=== PATIENT | male | born 1965 | race Caucasian/White ===

== ENCOUNTER 2021-02-26 00:41 | Day surgery (SDC) | payer OTHER, SELFPAY ==
[2021-02-15 13:26] VITALS: BMI 37.3
--- NOTE | 2021-02-26 08:16 | P.PNAN_ITS ---
Anes - Initial Pre Proc Eval Procedure: Operation Date: 02/26/21 10:30 Proposed Procedures p Screening Colonoscopy - Bakari Scott MD Date/Time: 02/26/21 08:16 Surgeon: Bakari Scott MD Pre Op Diagnosis: neoplasm screening Patient Data Age: 55 Gender: M Height: 1.88 m Weight: 131.81 kg Allergies Allergy/AdvReac Type Severity Reaction Status Date / Time No Known Allergies Allergy Mild Verified 02/26/21 09:45 Home Medications Medication Instructions Recorded Confirmed Type aspirin 325 mg tablet 325 mg PO DAILY 01/28/19 02/26/21 History sildenafil 100 mg tablet 100 mg PO DAILY PRN #5 tablet 06/23/20 02/26/21 Rx atorvastatin 20 mg tablet See Rx Instructions .ROUTE 11/27/20 02/26/21 Rx .COMPLEX #90 tablet Patient hx anesthesia problems: none Family hx anesthesia problems: none Results Review: All pre-operative results and documents have been reviewed as part of the pre-operative evaluation. [facility] Past Medical History Medical History (Updated 02/23/21 @ 19:09 by Zana Smith DO) DVT, lower extremity Hypertension Mixed hyperlipidemia KP (obstructive sleep apnea) Pulmonary embolism Family History Family History Father Depression Grandparent Depression Social History Social History Smoking status: Never smoker Alcohol intake: current Drinks per week: 1 Substance use: never Substance use type: does not use Living arrangements: with family Spiritual care concerns: No Anes - Eval Final PreProcedure Day of Procedure 02/26/21 08:16 Patient weight: obese Heart: regular rate and rhythm Lungs: clear to auscultation and normal air movement Airway: Mallampati scale class III Neurological: alert and oriented Last oral intake: >/= 8 hours ASA classification: III Emergent: no Anesthetic plan: proceed Anesthesia type and monitoring: general GIVS and standard monitoring Results Review: All pre-operative results and documents have been reviewed as part of the pre-operative evaluation. Informed Consent: The patient's anesthetic plan and its attendant risks and benefits were discussed with the patient/family/POA. Questions were solicited and answers provided to the satisfaction of the patient/family/POA.
[2021-02-26 09:40] VITALS: BP 147/84; PULSE 79; RESP 18; TEMP 36.9; O2SAT 96; BMI 41.1
[2021-02-26] MEDS: LACTATED RINGERS 1,000 ML 150 ML IV CONT (09:55)
--- NOTE | 2021-02-26 10:14 | PM.HPGS ---
History of Present Illness History of Present Illness Consent: Risks, benefits, and alternatives have been discussed and questions answered. Patient agrees to proceed with procedure. Chief complaint: neoplasm screening Narrative: Nael Rivera is a 55 year old male here for first screening colonoscopy Review of Systems Constitutional: Constitutional: Denies headache(s) and Denies weakness Eyes: Eyes: Denies blurry vision ENT: Reports Normal hearing present, Denies headache(s) and Denies neck pain Cardiovascular: Cardiovascular: Denies chest pain and Denies dyspnea Respiratory: Respiratory: Denies dyspnea Gastrointestinal: Gastrointestinal: Reports no additional gastrointestinal complaints Genitourinary: Genitourinary: Denies dysuria Musculoskeletal: Musculoskeletal: Denies neck pain Integumentary/Breasts: Skin/Breast: Denies dry skin Neurologic: Reports Normal hearing present, Denies headache(s) and Denies weakness Psychiatric: Psychiatric: Denies anxiety Endocrine: Endocrine: Denies change in body appearance Hematologic/Lymphatic: Hematologic/Lymphatic: Denies easy bleeding Allergic/Immunologic: Allergic/Immunologic: Denies urticaria [facility] Past Medical History Medical History (Updated 02/26/21 @ 10:14 by Bakari Scott MD) Colon cancer screening DVT, lower extremity Hypertension Mixed hyperlipidemia KP (obstructive sleep apnea) Pulmonary embolism Family History Family History Father Depression Grandparent Depression Social History Social History Smoking status: Never smoker Alcohol intake: current Drinks per week: 1 Substance use: never Substance use type: does not use Living arrangements: with family Spiritual care concerns: No Meds Home Medications and Allergies Home Medications Medication Instructions Recorded Confirmed Type aspirin 325 mg tablet 325 mg PO DAILY 01/28/19 02/26/21 History sildenafil 100 mg tablet 100 mg PO DAILY PRN #5 tablet 06/23/20 02/26/21 Rx atorvastatin 20 mg tablet See Rx Instructions .ROUTE 11/27/20 02/26/21 Rx .COMPLEX #90 tablet Allergies Allergy/AdvReac Type Severity Reaction Status Date / Time No Known Allergies Allergy Mild Verified 02/26/21 09:45 Vital Signs Vital Signs - 24 hr 02/26/21 09:40 Temperature 98.5 F Pulse Rate 79 Respiratory Rate 18 Blood Pressure 147/84 H Pulse Oximetry 96 Exam Const: General: comfortable and no acute distress HENMT: General nose exam: Normal nares present Eyes: General: appearance normal, both eyes and all related structures Neck: Neck: no JVD Resp: Auscultation: clear to auscultation bilaterally Cardio: Rate: regular rate Rhythm: regular rhythm GI: Inspection: non-distended GI Palp: Yes Soft to palpation Skin: General skin exam: normal color Neuro: General: gait normal Speech: normal speech Extrem: General: normal to inspection Psych: Mental Status: mental status grossly normal Assessment and Plan Assessment and plan (1) Colon cancer screening: Code(s): Z12.11 - Encounter for screening for malignant neoplasm of colon Status: Acute Assessment and Plan: colonoscopy
[2021-02-26 10:37] VITALS: BP 129/81; PULSE 71; RESP 22; O2SAT 95
[2021-02-26 10:47] VITALS: BP 133/82; PULSE 69; RESP 21; O2SAT 94
[2021-02-26 10:57] VITALS: BP 145/86; PULSE 68; RESP 24; O2SAT 98
== END 2021-02-26 11:10 | disposition home or self-care (01) ==
PROVIDERS: PCP Family Medicine; Visit Provider Internal Medicine Gastroenterology
PROC: 0DJD8ZZ Inspection of Lower Intestinal Tract, Via Natural or Artificial Opening Endoscopic (ICD-10-PCS; CPT 45378; principal; 2021-02-26 10:30)
DX: Z12.11 Encounter for screening for malignant neoplasm of colon (principal); D12.3 Benign neoplasm of transverse colon; D12.5 Benign neoplasm of sigmoid colon; I10 Essential (primary) hypertension; E78.5 Hyperlipidemia, unspecified; G47.33 Obstructive sleep apnea (adult) (pediatric); Z86.711 Personal history of pulmonary embolism; K57.30 Diverticulosis of large intestine without perforation or abscess without bleeding
CPT/HCPCS: 45385; 88305; J2704; J7120

== ENCOUNTER → 2021-11-26 09:09 | Outpatient (CLI) | payer BC, SELFPAY ==
--- NOTE | ~2021-11-26 | XR_ITS ---
XR knee LT 3V DATE: 11/26/2021 09:34 INDICATION: Right knee pain TECHNIQUE: 4 views including standing AP and PA views COMPARISON: None FINDINGS: There is minimal periarticular spurring at the patellofemoral and lateral compartments. Th ere is moderately severe narrowing at the medial compartment joint space. No fracture or dislocation, periosteal reaction or bone destruction, radiopaque intraarticular loose body or chondrocalcinosis is detected. IMPRESSION: Osteoarthritis Reviewed, dictated and finalized at location B. IMPRESSION: Osteoarthritis
--- NOTE | ~2021-11-26 | XR_ITS ---
XR knee RT 3V DATE: 11/26/2021 09:34 INDICATION: Right knee pain TECHNIQUE: 4 views including standing AP and PA views COMPARISON: None FINDINGS: Mild suprapatellar knee joint effusion is suggested. There is mild periarticular spurring at the patellofemoral and lateral compartments and moderate mode rate loss of metacarpal joint space height, consistent with tricompartment osteoarthritis. No fracture or dislocation. No radiopaque interarticular loose body or chondrocalcinosis. No perioste al reaction or bone destruction. IMPRESSION: Tricompartment osteoarthritis and mild joint effusion Reviewed, dictated and finalized at location B.
== END ==
PROVIDERS: PCP Nurse Practitioner; Visit Provider Nurse Practitioner
DX: M17.0 Bilateral primary osteoarthritis of knee (principal)
CPT/HCPCS: 73562

== ENCOUNTER 2021-11-26 09:50 | Outpatient (CLI) | payer BC, SELFPAY ==
[2021-11-26 20:31] LABS: Basophils Absolute Auto 0.1 K/mm3 (0.0-0.1); Basophils Percent Auto 0.8 % (0.2-1.2); Eosinophils Absolute Auto 0.4 K/mm3 (0-0.3); Eosinophils Percent Auto 4.8 % (0-4.4); Hematocrit 44.8 % (42.0-52.0); Hemoglobin 14.5 g/dL (14.0-18.0); Immature Granulocyte Absolute 0.02 K/mm3 (0.00-0.031); Immature Granulocyte Percent A 0.3 % (0-0.5); Lymphocytes Absolute Auto 1.81 K/mm3 (0.9-3.2); Lymphocytes Percent Auto 22.9 % (18.3-44.2); Mean Corpuscular HGB Conc 32.4 g/dl (32-36); Mean Corpuscular Hemoglobin 30.1 pg (26-34); Mean Corpuscular Volume 93.1 fl (80-100); Mean Platelet Volume 10.2 fl (7.4-10.4); Monocytes Absolute Auto 0.8 K/mm3 (0.1-0.6); Monocytes Percent Auto 10.1 % (2.6-8.5); Neutrophils Absolute Auto 4.8 K/mm3 (1.3-6.7); Neutrophils Percent Auto 61.1 % (45.5-73.1); Platelet Count Result 255 k/mm3 (150-375); Red Blood Count 4.81 M/mm3 (4.6-6.20); Red Cell Distribution Width 13.2 % (11.5-14.5); White Blood Count 7.9 K/mm3 (4.5-10.0)
[2021-11-26 21:15] LABS: Alanine Aminotransferase 54 U/L (6-50); Albumin Level 4.5 g/dL (3.5-5.1); Alkaline Phosphatase 95 U/L (38-126); Anion Gap 11 mmol/L (8-16); Aspartate Amino Transferase 52 U/L (17-59); Bilirubin,Total 1.4 mg/dL (0.2-1.3); Blood Urea Nitrogen 16 mg/dL (9-20); Calcium 8.7 mg/dL (8.4-10.2); Carbon Dioxide 25 mmol/L (22-30); Chloride 105 mmol/L (98-107); Cholesterol 149 mg/dL (0-200); Estimated Glomerular Filt Rate > 60; Glucose 97 mg/dL (65-110); HDL Direct 41 mg/dL; Potassium 4.4 mmol/L (3.4-5.0); Sodium 141 mmol/L (137-145); Triglycerides 74 mg/dL (<150)
[2021-11-26 21:27] LABS: LDL Cholesterol Direct 84 mg/dL
== END 2021-11-26 09:51 | disposition home or self-care (01) ==
LOC: ANHGOSHLAB 10:03
PROVIDERS: PCP Nurse Practitioner; Visit Provider Nurse Practitioner
DX: Z00.00 Encounter for general adult medical examination without abnormal findings (principal); Z12.5 Encounter for screening for malignant neoplasm of prostate
CPT/HCPCS: 36415; 80053; 80061; 84153; 84443; 85025; G0103

== ENCOUNTER 2022-01-22 17:46 | Emergency (ER) | payer BC, SELFPAY ==
--- NOTE | 2022-01-22 17:51 | ED.URI ---
HPI - URI/Sore Throat General Chief Complaint: Upper Respiratory Infection Stated Complaint: SORE THROAT Time Seen by Provider: 01/22/22 17:51 Source: patient and RN notes reviewed History of Present Illness HPI Narrative: Patient is a 56-year-old male who presents to urgent care with complaints of a severe sore throat, congestion. Patient denies any fevers, nausea or vomiting. Patient states that it started on Friday after he got off a cruise. Patient has been using throat lozenges but otherwise has not been treating his symptoms with anything else [id number]. Denies any ill exposures. No other acute complaints. No acute distress noted. Patient aware plan of care of Some parts of this dictation were generated by voice recognition software and may contain typographical and/or grammatical inaccuracies. Related Data Home Medications Medication Instructions Recorded Confirmed aspirin 325 mg tablet 325 mg PO DAILY 01/28/19 12/31/21 Allergies Allergy/AdvReac Type Severity Reaction Status Date / Time No Known Allergies Allergy Mild Verified 12/31/21 09:50 Review of Systems Review of Systems: CONSTITUTIONAL: Denies fever, chills, or sweats. EYES: Denies visual changes, redness, or discharge. ENT: Reports of congestion and sore throat CARDIOVASCULAR: Denies chest pain, palpitations, or edema. RESPIRATORY: Denies cough or dyspnea. GASTROINTESTINAL: Denies abdominal pain, nausea, vomiting, or diarrhea. GENITOURINARY: Denies dysuria or hematuria. SKIN: Denies rash or itching. MUSCULOSKELETAL: Denies back pain, joint pain, or myalgia. NEUROLOGIC: Denies headache, numbness, or weakness. All other systems reviewed are negative, except as documented in HPI. [facility] Past Medical History Medical History (Updated 01/22/22 @ 18:18 by SHARON Henderson) Colon cancer screening DVT, lower extremity Hypertension Left knee DJD Mixed hyperlipidemia KP (obstructive sleep apnea) Pulmonary embolism Right knee DJD Family History Family History Father Depression Grandparent Depression Social History Social History (Updated 01/22/22 @ 13:35 by JOSE ALEJANDRO Medrano) Smoking status: Never smoker Alcohol intake: current Drinks per week: 5 Alcohol use details: beer Substance use: never Substance use type: does not use Gender identity (if verbalized by the patient): Male Spiritual care concerns: No Comments At the time of my signature, I reviewed and agree with the nursing past medical, surgical, social, and family history. There is no relevant family history pertinent to the patient complaint. Exam Narrative: GENERAL: This is a well-nourished, well-developed patient, in no apparent distress. HEAD: normocephalic, atraumatic. EYES: PERRL. Sclera clear/white. Vision is grossly intact. EARS: External ears normal, auditory canals clear and without drainage, TMs normal without perforation. Hearing grossly intact. NOSE: External nose normal with no obvious nasal discharge, nares without redness, no rhinorrhea. THROAT: Mucous membranes moist, moderate erythema to posterior oropharynx with moderate postnasal drainage. NECK: Neck supple, non-tender without lymphadenopathy CARDIOVASCULAR: Regular rate and rhythm without murmurs, gallops, or rubs. RESPIRATORY: Clear to auscultation. Breath sounds equal bilaterally. No wheezes, rales, or rhonchi. SKIN: warm, intact with no suspicious lesions or rash, good texture and turgor. NEURO: awake, alert, and oriented to person, place and time. There were no obvious focal neurologic abnormalities. EXTREMITIES: No clubbing, cyanosis, or edema. Course Course Level of Care: Express Care Visit Vital Signs Vital signs: Vital Signs Temperature 100.8 F H 01/22/22 17:55 Pulse Rate 83 01/22/22 17:55 Respiratory Rate 18 01/22/22 17:55 Blood Pressure 166/91 H 01/22/22 17:55 Pulse Oximetry 95 01/22/22
[2022-01-22 17:55] VITALS: BP 166/91; PULSE 83; RESP 18; TEMP 38.2; O2SAT 95
== END 2022-01-22 18:39 | disposition home or self-care (01) ==
PROVIDERS: Emergency Provider Nurse Practitioner Family; PCP Family Medicine
DX: J02.9 Acute pharyngitis, unspecified (principal); I10 Essential (primary) hypertension; E78.2 Mixed hyperlipidemia; Z86.718 Personal history of other venous thrombosis and embolism
CPT/HCPCS: 87081; 87804; 87880; 99213; G0463